=== PATIENT | male | born 1975 | race Caucasian/White ===

== ENCOUNTER 2020-09-16 00:58 | Emergency (ER) | payer SELFPAY ==
--- NOTE | 2020-09-16 02:08 | ED.PDOC ---
History of Present Illness - General Chief Complaint: Problem Stated Complaint: pelvic paiin Time Seen by Provider: 09/16/20 01:24 Source: patient, RN notes reviewed, Vital Signs reviewed, family Exam Limitations: no limitations - History of Present Illness Initial Comments: Patient is a 44-year-old white male who is approximately 1 week status post bowel resection who presents with complaints of lower abdominal pain. The pain is cramping and throbbing in nature. It is severe in intensity. It is constant. There is no radiation of the pain. Patient attributes this to his Shelton catheter that is quit working. Patient denies any fevers, chills, nausea, vomiting or diarrhea. Timing/Duration: this evening Quality: severe, cramping, steady, throbbing Onset Location: suprapubic, urethral Radiation: none Activites at Onset: none Prior abdominal problems: recent trauma - Patient is 1 week status post bowel resection. Sexual intercourse history: other - Patient has not been sexually active in the last week. Improving Factors: nothing Worsening Factors: nothing Associated Symptoms: abdominal pain, loss of bladder control - Patient attempted to urinate earlier to force the Shelton to work and he urinated around the Shelton. Review of Systems - Review of Systems Constitutional: States: no symptoms reported, see HPI. Denies: chills, fever, malaise, weakness EENTM: States: no symptoms reported. Denies: eye pain, blurred vision, double vision Respiratory: States: no symptoms reported. Denies: cough, short of breath, stridor, wheezing Cardiology: States: no symptoms reported. Denies: chest pain, palpitations, syncope Gastrointestinal/Abdominal: States: see HPI, abdominal pain. Denies: diarrhea, nausea, vomiting Genitourinary: States: see HPI, pain Musculoskeletal: States: no symptoms reported. Denies: back pain, joint pain, neck pain Skin: States: no symptoms reported. Denies: change in color, rash Neurological: States: no symptoms reported. Denies: tingling, tremors, weakness Endocrine: States: no symptoms reported. Denies: increased hunger, increased thirst, increased urine Hematologic/Lymphatic: States: no symptoms reported, blood clots, easy bleeding All other Systems: Reviewed and Negative Past Medical History (General) - Patient Medical History Hx Asthma: No Hx Diabetes: No Hx Gastroesophageal Reflux: No Surgical History: other - Vaccination History Hx Tetanus, Diphtheria Vaccination: No Hx Influenza Vaccination: No - Social History Hx Tobacco Use: No Hx Alcohol Use: No Family Medical History - Family History Father Family History: Unknown Physical Exam - Physical Exam General Appearance: Alert, Anxious, Obvious distress, Well Developed, Well Nena omed, Well Hydrated, Well Nourished Eyes, Ears, Nose, Throat Exam: PERRL/EOMI, normal ENT inspection, pharynx normal Neck: non-tender, full range of motion, supple Cardiovascular/Respiratory: regular rate, rhythm, no M/R/G, normal peripheral pulses, no JVD, normal breath sounds, no respiratory distress Gastrointestinal/Abdominal: normal bowel sounds, non tender, soft, no organomegaly, no pulsatile mass Male Genital Exam: normal genitalia, no hernia, other - Patient with a nonfunctioning Shelton in place. 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 09/16/20 02:11 Attempted to flush the Shelton catheter with 80 cc of sterile normal saline. Patient demanded that we stop. We attempted to withdraw the saline without any luck. Patient demanded removal of Shelton catheter. We explained that this could cause complications from the surgery. Patient states that he will cut it out himself if we do not remove it. Patient Shelton was removed after risks and benefits were explained to patient. Patient was giving warning signs for return. Patient discharged home to follow-up with her surgeon tomorrow. Xavier Bond M.D. #[id number] Departure - Departure Clinical Impression: Encounter for [place] catheter removal Obstructed Shelton catheter Qualifiers: Encounter type: initial encounter Qualified Code(s): T83.091A - Other mechanical complication of indwelling urethral catheter, initial encounter Time of Disposition: 02:14 Disposition: Discharge to Home or Self Care Condition: Good Departure Forms: ED Discharge - Pt. Copy, Patient Portal Self Enrollment Instructions: Urinary Retention (DC) Diet: resume usual diet Activity: increase activity as tolerated Comments: Patient to follow-up with the surgeon in the morning.
[2020-09-16 02:22] VITALS: BP 151/88; TEMP 97.8; O2SAT 97
== END 2020-09-16 02:20 | disposition home or self-care (01) ==
LOC: ER 00:58
DX: T83.091A Other mechanical complication of indwelling urethral catheter, initial encounter (principal); R10.30 Lower abdominal pain, unspecified; Z90.49 Acquired absence of other specified parts of digestive tract